=== PATIENT | female | born 1990 | race Hispanic/Latino ===

== ENCOUNTER 2020-02-07 10:17 | Observation (INO) | payer OTHER ==
[~2020-02-07] VITALS: Ht 165.1 cm; Wt 65.3 kg
[2020-02-07] MEDS: LACTATED RINGERS 1000ML 1,000 ML IV PRN ×2 (10:40→12:42)
[2020-02-07 11:52] LABS: APPEARANCE,URINE Cloudy (CLEAR); BILIRUBIN,URINE Negative (NEGATIVE); COLOR,URINE Yellow (YELLOW); GLUCOSE, URINE (UA) Negative (NEGATIVE); KETONES,URINE Trace mg/dL (NEGATIVE); LEUKOCYTE ESTERASE ,URINE Small (NEGATIVE); NITRATE,URINE Negative (NEGATIVE); OCCULT BLOOD,URINE Negative (NEGATIVE); PH,URINE 6.5 (5.0-8.0); PROTEIN,URINE Negative (NEGATIVE)
[2020-02-07 11:58] LABS: AMPHET/METH SCREEN,URINE NEGATIVE (NEGATIVE); BARBITURATE SCREEN, URINE NEGATIVE (NEGATIVE); BENZODIAZEPINES SCREEN,URINE NEGATIVE (NEGATIVE); CANNABINOID SCREEN,URINE NEGATIVE (NEGATIVE); COCAINE SCREEN,URINE NEGATIVE (NEGATIVE); OPIATE SCREEN,URINE NEGATIVE (NEGATIVE); PHENCYCLIDINE SCREEN,URINE NEGATIVE (NEGATIVE)
[2020-02-07 12:01] LABS: RBC,URINE 0-1 /HPF (0-1); WBC,URINE 0-1 /HPF (0-1)
[2020-02-07 12:02] LABS: BACTERIA,URINE Moderate /HPF (None Seen)
[2020-02-07 12:08] LABS: HEMATOCRIT 35.5 % (36-48); MEAN CORPUSCULAR HEMOGLOBIN 31.1 pg (27.0-33.0); MEAN CORPUSCULAR HGB CONC 33.5 g/dL (32.0-36.0); MEAN CORPUSCULAR VOLUME 92.7 fL (79-99); RED BLOOD CELL COUNT(AUTO) 3.83 MIL/uL (4.00-5.50); RED CELL DISTRIBUTION WIDTH 13.4 % (11.0-15.5); WHITE BLOOD COUNT (AUTO) 8.5 K/uL (4.8-10.8)
[2020-02-07] MEDS ORDERED: TERBUTALINE SULFATE VIAL 1MG/ML SQ SCH (12:15)
[2020-02-08 10:10] LABS: HEPATITIS Bs ANTIGEN SCREEN P Negative (Negative)
[2020-02-08 12:20] LABS: RAPID PLASMA REAGIN NONREACTIVE (NONREACTIVE)
== END 2020-02-07 13:30 | disposition home or self-care (01) ==
LOC: EDH 10:17 → LDH 10:18
PROVIDERS: ADMIT Specialist; ATTEND Specialist
DX: O26.893 Other specified pregnancy related conditions, third trimester (principal); R10.9 Unspecified abdominal pain; Z3A.35 35 weeks gestation of pregnancy
CPT/HCPCS: 36415; 76805; 80305; 81001; 85027; 86592; 86701; 86850; 86900; 86901; 87088; 87340; 87390; 96372; 99284; G0378 ×3; J3105; J7120 ×2; 96360

== ENCOUNTER 2020-03-17 08:29 | Inpatient (IN) | payer MEDICAID, OTHER ==
[~2020-03-17] VITALS: Ht 167.6 cm; Wt 67.1 kg
[2020-03-17] MEDS ORDERED: LACTATED RINGERS 1000ML 1,000 ML IV PRN (08:54)
[2020-03-17] MEDS ORDERED: OXYTOCIN-LR 20 UNITS/1000 ML 1,000 ML IV SCH ×2 (09:00→11:30)
[2020-03-17] MEDS ORDERED: AMPICILLIN 2GM+NS 100ML 100 ML IV SCH (09:00)
[2020-03-17] MEDS ORDERED: EPHEDRINE SULFATE 50 MG/ML AMPULE IVP PRN (09:00)
[2020-03-17] MEDS ORDERED: NALOXONE HCL 0.4 MG/1 ML ML IV PRN (09:00)
[2020-03-17] MEDS ORDERED: AMPICILLIN 1GM+NS 50ML 50 ML IV SCH (09:00)
[2020-03-17] MEDS ORDERED: LACTATED RINGERS 500 ML 500 ML IV PRN (09:00)
[2020-03-17] MEDS ORDERED: ROPIVACAINE 0.2% 100ML VIAL 100 ML EP SCH (09:00)
[2020-03-17 09:12] LABS: HEMATOCRIT 42.1 % (36-48); MEAN CORPUSCULAR HEMOGLOBIN 30.2 pg (27.0-33.0); MEAN CORPUSCULAR HGB CONC 33.5 g/dL (32.0-36.0); MEAN CORPUSCULAR VOLUME 90.1 fL (79-99); RED BLOOD CELL COUNT(AUTO) 4.67 MIL/uL (4.00-5.50); RED CELL DISTRIBUTION WIDTH 12.9 % (11.0-15.5); WHITE BLOOD COUNT (AUTO) 8.6 K/uL (4.8-10.8)
[2020-03-17 09:22] LABS: APPEARANCE,URINE Cloudy (CLEAR); BILIRUBIN,URINE Negative (NEGATIVE); COLOR,URINE Yellow (YELLOW); GLUCOSE, URINE (UA) Negative (NEGATIVE); KETONES,URINE Negative (NEGATIVE); LEUKOCYTE ESTERASE ,URINE Moderate (NEGATIVE); NITRATE,URINE Negative (NEGATIVE); OCCULT BLOOD,URINE Negative (NEGATIVE); PH,URINE 5.5 (5.0-8.0); PROTEIN,URINE Negative (NEGATIVE)
[2020-03-17 09:26] VITALS: BP 134/78
[2020-03-17 09:29] LABS: AMPHET/METH SCREEN,URINE NEGATIVE (NEGATIVE); BARBITURATE SCREEN, URINE NEGATIVE (NEGATIVE); BENZODIAZEPINES SCREEN,URINE NEGATIVE (NEGATIVE); CANNABINOID SCREEN,URINE NEGATIVE (NEGATIVE); COCAINE SCREEN,URINE NEGATIVE (NEGATIVE); OPIATE SCREEN,URINE NEGATIVE (NEGATIVE); PHENCYCLIDINE SCREEN,URINE NEGATIVE (NEGATIVE)
[2020-03-17 09:36] LABS: BACTERIA,URINE Rare /HPF (None Seen); RBC,URINE 0-1 /HPF (0-1); SQUAMOUS EPITHELIAL CELL,UR Few /HPF (0-2)
[2020-03-17] MEDS ORDERED: FENTANYL CITRATE PF 50 MCG/1 ML 2ML VIAL ONE (09:43)
[2020-03-17] MEDS ORDERED: WITCH HAZEL 1 PAD TP PRN (11:30)
[2020-03-17] MEDS ORDERED: ACETAMINOPHEN-CODEINE 300/30MG TAB PO PRN (11:30)
[2020-03-17] MEDS ORDERED: IBUPROFEN 600 MG TABLET PO PRN (11:30)
[2020-03-17] MEDS ORDERED: ACETAMINOPHEN 325 MG TAB PO PRN (11:30)
[2020-03-17] MEDS ORDERED: LANOLIN 30GM OINTMENT TP PRN (11:30)
[2020-03-17] MEDS ORDERED: DIPH,PERTUSS(ACELL),TET VAC/PF 0.5 ML VIAL IM PRN (11:30)
[2020-03-17] MEDS ORDERED: BENZOCAINE/LANOLIN/ALOE VERA 60 ML AEROSOL TP PRN (11:30)
[2020-03-17 16:22] VITALS: BP 117/55
--- NOTE | 2020-03-17 20:00 | NUR ---
Receiving pt from Dena Broderick RNC. Pt is awake, alert, and oriented, spouse at bedside, both are cheerful & friendly. Pt denies pain at present, states "i only feel cramping when I am ", denies need for pain meds. General physical assessment completed with focused review of systems; Instructing on risk & prevention for thrombus; and normal rubra that subsides each day; instructing to report increase in rubra or clots noted; encouraging freq urination & instructing on proper perineal hygiene; encouraging regular meals & snacks while & offering sandwich trays, juice & crackers prn; Instructing on depression & related hormonal changes common after delivery & instructing to report overwhelming feelings or anxiety; explaining planned po Zoloft scheduled for 0900. Pt and spouse voice understanding & agree to teaching; deny questions at present. Pt and spouse agree to plan of care, pt states "i had depression with my last baby and depression feelings during this so I was already taking Zoloft but I stopped because we moved". Reassuring pt & spouse with offered assistance if needed & planned resources for pt & family if needed.
[2020-03-17 20:27] VITALS: BP 142/77
--- NOTE | 2020-03-17 20:30 | NUR ---
Pt & spouse talkative, answering questions, and smiling, good eye contact noted, reporting good appetite, states "i have been eating a lot"; informing normal due to calories spent during labor & delivery. Offering sandwiches prn, pt agrees, reports will request snack later. Addendum: 03/18/20 at 0022 by ALIDA CONKLIN RN RN Amended: Links added.
--- NOTE | 2020-03-17 20:45 | NUR ---
Pt reports loose stool & requesting not to take Colace po; agreeing with pt desire. Lanolin, Tucks pads, and Dermoplast [place] given and instructing on use of meds. Pt voices understanding & agrees to med administration, denies questions at present.
[2020-03-17] MEDS: DOCUSATE SODIUM 100 MG CAP PO SCH (20:52)
[2020-03-17] MEDS ORDERED: SERT50TA PO (21:34)
--- NOTE | 2020-03-18 00:10 | NUR ---
spouse at bedside, pt holding baby to right breast, good latch & hold noted. Pt denies pain or discomfort at present.
[2020-03-18 00:30] VITALS: BP 133/79
--- NOTE | 2020-03-18 01:14 | NUR ---
IV discontinued, site without redness or edema, pressure applied & bandaid in place. Encouraging pt to increase fluid intake due risk for dehydration; pt voices understanding & agrees to teaching, states "i am thirsty", water pitcher full, offering juice, pt agrees & requesting apple juice. ExitCare discharge instructions given & reviewing with pt and spouse, focusing on normal vag bleeding & depression s/s; explaining s/s to report to md and s/s that require immediate emergency care. Pt and spouse verbalize understanding & agree to teaching.
[2020-03-18 04:40] VITALS: BP 123/63
--- NOTE | 2020-03-18 06:35 | NUR ---
DR. MATOS AT BEDSIDE TO ASSESS PT. PT AND INFORMED THAT SHE IS ABLE TO BE DISCHARGED ONCE BABY IS CLEARED BY REGENERATOR OPERATOR. PT INFORMED TO CALL OFFICE TO MAKE A FOLLOW UP VISIT IN ONE WEEK. PT VERBALIZED UNDERSTANDING. ALL QUESTIONS ANSWERED. PT IS CONTENT WITH PLAN OF CARE.
[2020-03-18 07:45] VITALS: BP 109/57
[2020-03-18] MEDS: SERTRALINE HCL 50 MG TABLET PO SCH (08:56)
[2020-03-18] MEDS: DOCUSATE SODIUM 100 MG CAP PO SCH ×2 (09:00→20:53)
--- NOTE | 2020-03-18 09:58 | NUR ---
HX of Chronic Depression & Post depression Sw met with pt and her Tadeo Bah [phone]. This is second child for the couple, they have 2yro daughter and NB son Tadeo Bah. Couple recently relocated to [place] from [place] to be closed to pt's family. Both are currently unemployed but stated they are living off of their savings at this time. Pt has Medicaid and has applied for Food stamps and will apply for WIC after dc. THey have basic items for and car seat. Dr Noe Mcdermott will follow baby after dc. Couple has good family support system in place and will have help after dc Pt reports hx of chronic depression dx in [place]. Pt experienced post depression for 1 year after of daughter. Pt states she did have suicidal ideations during this time and was started on Zoloft. Medication did help her through this difficult time. Pt also reports feelings of depression during and discussed with Dr Hong. Zoloft was continued throughout this . pt denies any ideations during and states "I can't remember the last time I had an ideation". Discussed s/s of post depression and both pt and voiced understanding and willingness to seek help roni. Pt denied need for psych care/ counseling resources offered. Pt denies hx of abuse, substance abuse, CPS or legal issues. Addendum: 03/18/20 at 1012 by WALESKA HOWARD Amended: Links added.
--- NOTE | 2020-03-18 11:00 | NUR ---
DISCHARGE INSTRUCTIONS READ AND EXPLAINED TO PATIENT.RX FOR ZOLOFT 50MG AND MORTIN 800MG HANDED TO PATIENT. QUESTIONS INVITED AND ANSWERED. NO COMPLAINTS OR CONCERNS ADDRESSED FROM PATIENT.
[2020-03-18 11:40] VITALS: BP 128/79
[2020-03-18 14:22] LABS: RAPID PLASMA REAGIN NONREACTIVE (NONREACTIVE)
[2020-03-18 16:30] VITALS: BP 127/73
[2020-03-18 19:33] VITALS: BP 125/72
[2020-03-19 00:24] VITALS: BP 134/87
[2020-03-19 04:19] VITALS: BP 124/79
[2020-03-19 06:11] LABS: HEPATITIS Bs ANTIGEN SCREEN P Negative (Negative)
[2020-03-19 07:29] VITALS: BP 128/75
[2020-03-19] MEDS: DOCUSATE SODIUM 100 MG CAP PO SCH (09:00)
[2020-03-19] MEDS: SERTRALINE HCL 50 MG TABLET PO SCH (09:30)
[2020-03-19 11:16] VITALS: BP 137/82
--- NOTE | 2020-03-19 12:20 | NUR ---
PATIENT LEFT UNIT VIA WHEELCHAIR WITH BABY IN ARMS. PERSONAL VEHICLE USED FOR TRANSPORTATION, BABY SECURE IN CARSEAT. NO COMPLAINTS OR CONCERNS ADDRESSED FROM PATIENT ON DISCHARGE.
== END 2020-03-19 12:20 | disposition home or self-care (01) | DRG 560 ==
LOC: EDH 08:29 → LDH 08:32 → OBSVTOIN 08:32 → WSH 13:44
PROC: 10E0XZZ Delivery of Products of Conception, External Approach (ICD-10-PCS; principal; 2020-03-17)
PROC: 3E0234Z Introduction of Serum, Toxoid and Vaccine into Muscle, Percutaneous Approach (ICD-10-PCS; 2020-03-17)
PROC: 3E0R3BZ Introduction of Anesthetic Agent into Spinal Canal, Percutaneous Approach (ICD-10-PCS; 2020-03-17)
PROC: 00HU33Z Insertion of Infusion Device into Spinal Canal, Percutaneous Approach (ICD-10-PCS; 2020-03-17)
DX: O76 Abnormality in fetal heart rate and rhythm complicating labor and delivery (principal); Z37.0 Single live birth; O99.344 Other mental disorders complicating childbirth; F32.9 Major depressive disorder, single episode, unspecified; Z23 Encounter for immunization; Z3A.40 40 weeks gestation of pregnancy
CPT/HCPCS: 36415; 80305; 81001; 85027; 86592; 86701; 86850; 86900; 86901; 87088; 87340; 87390; A4314; A4606; G0378; J0290; J2590; J3010; J7120

== ENCOUNTER → 2020-03-27 | Outpatient (CLI) | payer MEDICAID ==
[~2020-03-27] MED LIST: SERT50TA PO
== END | disposition home or self-care (01) ==
LOC: RAH 15:04
DX: M79.661 Pain in right lower leg (principal)
CPT/HCPCS: 93971

== ENCOUNTER 2022-02-21 16:10 | Emergency (ER) | payer MEDICAID ==
[~2022-02-21] VITALS: Ht 167.6 cm; Wt 66.2 kg
[~2022-02-21 16:10] MED LIST changes: +CEPH500B PO; +ONDA4TAB10 PO; +PHEN12S PR
[2022-02-21 16:13] VITALS: BP 107/78
[2022-02-21] MEDS ORDERED: 0.9%NACL 1000ML 1,000 ML IV SCH (16:30)
[2022-02-21 16:38] LABS: BASOPHILS % (AUTO) 0.3 % (0.0-5.0); EOSINOPHILS % (AUTO) 0.6 % (0.0-8.0); HEMATOCRIT 40.5 % (36-48); LYMPHOCYTES % (AUTO) 18.7 % (21.0-51.0); MEAN CORPUSCULAR HEMOGLOBIN 29.6 pg (27.0-33.0); MEAN CORPUSCULAR HGB CONC 33.6 g/dL (32.0-36.0); MONOCYTES % (AUTO) 4.2 % (3.0-13.0); PLATELET COUNT (AUTO) 252 K/uL (130-400); RED CELL DISTRIBUTION WIDTH 11.5 % (11.0-15.5); WHITE BLOOD COUNT (AUTO) 10.5 K/uL (4.8-10.8)
[2022-02-21 16:52] LABS: CREATININE 0.7 mg/dL (0.5-1.5); POTASSIUM 3.7 mmol/L (3.5-5.1)
[2022-02-21] MEDS ORDERED: ONDANSETRON 4MG INJ ONE (16:54)
[2022-02-21 16:56] LABS: APPEARANCE,URINE Turbid (CLEAR); BILIRUBIN,URINE Small (NEGATIVE); COLOR,URINE Dark Yellow (YELLOW); GLUCOSE, URINE (UA) Negative (NEGATIVE); KETONES,URINE >=160 mg/dL (NEGATIVE); LEUKOCYTE ESTERASE ,URINE Moderate (NEGATIVE); NITRATE,URINE Negative (NEGATIVE); OCCULT BLOOD,URINE Negative (NEGATIVE); PROTEIN,URINE POS 2+ mg/dL (NEGATIVE)
[2022-02-21 16:57] LABS: ALBUMIN 3.9 g/dL (3.5-5.0); TOTAL PROTEIN, SERUM 7.7 g/dL (6.0-8.3)
[2022-02-21] MEDS ORDERED: ONDANSETRON 4MG INJ IVP ONE (17:00)
[2022-02-21 17:20] LABS: BACTERIA,URINE Moderate /HPF (None Seen); MUCUS,URINE Moderate LPF (None Seen); SQUAMOUS EPITHELIAL CELL,UR Few /HPF (0-2)
[2022-02-21] MEDS ORDERED: CEFTRIAXONE 1G VIAL IVP ONE (17:30)
[2022-02-21] MEDS ORDERED: ONDA4TAB10 PO (17:58)
[2022-02-21] MEDS ORDERED: CEPH500B PO (17:58)
== END 2022-02-21 18:08 | disposition home or self-care (01) ==
LOC: EDH 16:10
DX: O23.41 Unspecified infection of urinary tract in pregnancy, first trimester (principal); N39.0 Urinary tract infection, site not specified; O99.281 Endocrine, nutritional and metabolic diseases complicating pregnancy, first trimester; E86.0 Dehydration; O21.0 Mild hyperemesis gravidarum; Z79.899 Other long term (current) drug therapy; Z3A.09 9 weeks gestation of pregnancy
CPT/HCPCS: 36415; 80053; 81001; 84702; 85025; 87088; 96361; 96374; 96375; 99284; J0696; J2405; J7030